=== PATIENT | female | born 1970 | race Caucasian/White ===

== ENCOUNTER 2018-06-03 16:09 | Emergency (ER) | payer MEDICAID ==
[~2018-06-03] VITALS: Ht 162.6 cm; Wt 62.9 kg
[~2018-06-03 16:09] MED LIST: LOPE1TAB4 PO; RANI150T4 PO; SPIR50TA4 PO; [UNRECOGNIZED DRUG - CODE] PO
[2018-06-03] MEDS ORDERED: DEXAMETHASONE 1 MG TABLET PO STA (17:23)
[2018-06-03] MEDS ORDERED: IBUPROFEN 200 MG TABLET PO ONE (17:30)
[2018-06-03] MEDS ORDERED: IBUPROFEN 200 MG TABLET ONE (17:31)
[2018-06-03] MEDS ORDERED: DEXAMETHASONE 4 MG TABLET ONE (17:31)
[2018-06-03] MEDS ORDERED: DEXAMETHASONE 4 MG TABLET PO STA (17:36)
[2018-06-03 18:53] VITALS: BP 112/60
== END 2018-06-03 18:56 | disposition home or self-care (01) ==
LOC: ED 18:20
DX: J02.8 Acute pharyngitis due to other specified organisms (principal); B97.89 Other viral agents as the cause of diseases classified elsewhere; L04.0 Acute lymphadenitis of face, head and neck
CPT/HCPCS: 76536; 99284

== ENCOUNTER 2018-06-15 15:57 | Emergency (ER) | payer MEDICAID ==
[~2018-06-15] VITALS: Ht 165.1 cm; Wt 63.0 kg
[2018-06-15 16:11] VITALS: BP 138/92
== END 2018-06-15 17:16 | disposition home or self-care (01) ==
LOC: ED 16:46
DX: M72.2 Plantar fascial fibromatosis (principal); F17.200 Nicotine dependence, unspecified, uncomplicated
CPT/HCPCS: 99284

== ENCOUNTER → 2018-08-10 | Outpatient (CLI) | payer MEDICAID | END | disposition home or self-care (01) | LOC: CFH 09:24 | PROVIDERS: ATTEND Orthopaedic Surgery | DX: M89.371 Hypertrophy of bone, right ankle and foot (principal); M65.9 Synovitis and tenosynovitis, unspecified; M79.671 Pain in right foot ==

== ENCOUNTER 2018-12-22 12:21 | Emergency (ER) | payer MEDICAID ==
[~2018-12-22] VITALS: Ht 162.6 cm; Wt 61.0 kg
[2018-12-22 12:30] VITALS: BP 104/65
[2018-12-22 12:56] LABS: BASOPHILS # (AUTO) 0.04 x10^3/uL (0-0.1); BASOPHILS % (AUTO) 1 % (0-1); EOSINOPHILS # (AUTO) 0.14 x10^3/uL (0-0.4); EOSINOPHILS % (AUTO) 2 % (1-7); LYMPHOCYTES # (AUTO) 2.16 x10^3/uL (1-3.4); LYMPHOCYTES % (AUTO) 26 % (22-44); MD NO; MEAN CORPUSCULAR HEMOGLOBIN 33.1 pg (27.0-34.8); MEAN CORPUSCULAR HGB CONC 32.8 g/dL (32.4-35.8); MEAN CORPUSCULAR VOLUME 100.9 fL (80-100); MEAN PLATELET VOLUME 7.5 fL (7.4-10.4); MONOCYTES # (AUTO) 0.49 x10^3/uL (0.2-0.8); MONOCYTES % (AUTO) 6 % (2-9); NEUTROPHILS # (AUTO) 5.54 x10^3/uL (1.8-6.8); NEUTROPHILS % (AUTO) 66 % (42-75); PLATELET COUNT 290 x10^3/uL (130-400); RED BLOOD COUNT 4.48 x10^6/uL (3.82-5.3); RED CELL DISTRIBUTION WIDTH 12.4 % (9.6-15.2)
[2018-12-22 13:08] LABS: ALBUMIN 3.8 g/dL (3.4-5.0); ANION GAP 6 mmol/L (5-15); CALCIUM 9.2 mg/dL (8.5-10.1); CHLORIDE 107 mmol/L (98-107)
[2018-12-22 13:12] LABS: TROPONIN I < 0.015 ng/mL (0.000-0.045)
--- NOTE | 2018-12-22 14:14 | NUR ---
pt in room on cardiac, o2 and nibp. monitoring. pts family in room. family continuously observing monitor and calling this rn in room. pt and family reassured that she is being monitored. pt seems very anxious with every noise the equipment makes. calm enviroment provided , lights dimmed and pt and family reassured that she is being watched. md in room to discuss plan of care. poc is to discharge pt. at this time pt is anxious with decision. provider made aware. pt is reassured that she has been monitored.
== END 2018-12-22 15:14 | disposition home or self-care (01) ==
LOC: ED 14:19
DX: I49.1 Atrial premature depolarization (principal); R00.2 Palpitations; Z88.6 Allergy status to analgesic agent; Z88.0 Allergy status to penicillin
CPT/HCPCS: 36415; 71045; 80048; 82040; 84484; 85025; 93005; 99284